=== PATIENT | male | born 1995 | race Caucasian/White ===

== ENCOUNTER 2017-01-05 04:46 | Observation (INO) | payer OTHER ==
[2017-01-05] VITALS (9 sets, daily range): BP systolic 120–155; BP diastolic 57–97; PULSE 74–96; RESP 16–24; TEMP 98.4–98.8; O2SAT 97–100
[2017-01-05] MEDS ORDERED: MORPHINE SULFATE 8 MG/ML INJ ONE (04:56)
[2017-01-05] MEDS ORDERED: DIPHTH/TETANUS/ACEL PERTUSSIS (BOOSTER) 0.5 ML VIAL/PFS IM ONE (05:12)
[2017-01-05 05:15] LABS: AUTOMATED NEUTROPHIL # 5.6 TH/MM3 (1.8-7.7); BASOPHIL # 0.1 TH/MM3 (0-0.2); BASOPHIL % 0.9 % (0.0-2.0); EOSINOPHIL # 0.3 TH/MM3 (0-0.4); HEMATOCRIT 54.4 % (39.0-51.0); HEMOGLOBIN 19.7 GM/DL (13.0-17.0); LYMPH % 36.9 % (9.0-44.0); MEAN CELL VOLUME 88.3 FL (80.0-100.0); MEAN CORPUSCULAR HEMOGLOBIN 31.9 PG (27.0-34.0); MEAN PLATELET VOLUME 7.7 FL (7.0-11.0); MONO % 7.5 % (0.0-8.0); MONOCYTE # 0.8 TH/MM3 (0-0.9); NEUT % 51.7 % (16.0-70.0); PLATELET COUNT 363 TH/MM3 (150-450); RED BLOOD COUNT 6.16 MIL/MM3 (4.50-5.90); RED CELL DISTRIBUTION WIDTH 12.5 % (11.6-17.2); WHITE BLOOD COUNT 10.8 TH/MM3 (4.0-11.0)
[2017-01-05] MEDS ORDERED: SODIUM CHLOR 0.9% 1000 ML INJ 1,000 ML IV ONE (05:15)
[2017-01-05] MEDS ORDERED: MORPHINE SULFATE 4 MG/ML INJ IV PUSH ONE (05:15)
[2017-01-05] MEDS ORDERED: ONDANSETRON HCL 4 MG/2 ML VIAL IV PUSH ONE (05:15)
[2017-01-05] MEDS ORDERED: IOHEXOL 350 MG/ML 10 ML VIAL (for RAD DIAG) IVCONTRAST ONE (05:16)
[2017-01-05 05:21] LABS: MEAN CORPUSCULAR HGB CONC 36.2 % (32.0-36.0)
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
[2017-01-05] MEDS ORDERED: LORazepam 2 MG/ML VIAL ONE (05:23)
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
[2017-01-05 05:39] LABS: INTERNATIONAL NORMALIZED RATIO 1.1 RATIO; PROTHROMBIN TIME - PATIENT 11.9 SEC (9.8-11.6)
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
[2017-01-05] MEDS ORDERED: NICOTINE 21 MG/24 HR PATCH T-DERMAL ONE (06:00)
[2017-01-05] MEDS ORDERED: MORPHINE SULFATE 8 MG/ML INJ IV PUSH ONE (06:00)
[2017-01-05] MEDS ORDERED: LORazepam 2 MG/ML VIAL IV PUSH ONE (06:30)
[2017-01-05] MEDS ORDERED: HALOPERIDOL LACTATE 5 MG/ML AMP IM ONE (06:30)
[2017-01-05 06:43] LABS: BASOPHILS 1 % (0-2); LYMPHOCYTES 27 % (9-44); MONOCYTES 11 % (0-8); NEUTROPHIL # MANUAL DIFF 6.3 TH/MM3 (1.8-7.7); POLYS (SEG NEUTROPHILS) 58 % (16-70)
[2017-01-05 07:00] LABS: BILIRUBIN, URINE NEG (NEG); BLOOD, URINE NEG (NEG); GLUCOSE,URINE NEG (NEG); KETONE, URINE NEG (NEG); NITRITE,URINE NEG (NEG); URINE COLOR COLORLESS (YELLW/STRAW); URINE LEUKOCYTE ESTERASE NEG (NEG)
[2017-01-05] MEDS ORDERED: ACETAMINOPHEN/HYDROcodone 325 MG/5 MG TAB PO PRN (07:30)
[2017-01-05] MEDS ORDERED: ENALAPRILAT 1.25 MG/ML VIAL IV PUSH PRN (07:30)
[2017-01-05] MEDS ORDERED: SODIUM CHLORIDE 0.9% FLUSH 10 ML FLUSH IV FLUSH PRN (07:30)
[2017-01-05] MEDS ORDERED: MAGNESIUM HYDROXIDE SUSP 30 ML CUP PO PRN (07:30)
[2017-01-05] MEDS ORDERED: MORPHINE SULFATE 2 MG/ML INJ IV PUSH PRN (07:30)
[2017-01-05] MEDS ORDERED: ONDANSETRON HCL 4 MG/2 ML VIAL IV PUSH PRN (07:30)
[2017-01-05] MEDS: DOCUSATE SODIUM 100 MG CAP PO SCH ×2 (09:00→20:49)
[2017-01-05] MEDS: SODIUM CHLOR 0.9% 1000 ML INJ 1,000 ML IV SCH ×2 (09:44→18:37)
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
[2017-01-05] MEDS: ceFAZolin 2 GM PREMIX 50 ML IV SCH ×2 (13:32→20:49)
[2017-01-06] MEDS: SODIUM CHLOR 0.9% 1000 ML INJ 1,000 ML IV SCH ×2 (03:25→13:25)
[2017-01-06 04:14] LABS: AUTOMATED NEUTROPHIL # 6.4 TH/MM3 (1.8-7.7); BASOPHIL % 0.5 % (0.0-2.0); EOSINOPHIL # 0.3 TH/MM3 (0-0.4); EOSINOPHIL % 3.1 % (0.0-4.0); HEMATOCRIT 45.7 % (39.0-51.0); HEMOGLOBIN 16.4 GM/DL (13.0-17.0); LYMPH % 12.8 % (9.0-44.0); LYMPHOCYTE # 1.1 TH/MM3 (1.0-4.8); MEAN CELL VOLUME 88.9 FL (80.0-100.0); MEAN CORPUSCULAR HEMOGLOBIN 31.8 PG (27.0-34.0); MEAN CORPUSCULAR HGB CONC 35.8 % (32.0-36.0); MEAN PLATELET VOLUME 8.2 FL (7.0-11.0); MONO % 10.9 % (0.0-8.0); NEUT % 72.7 % (16.0-70.0); PLATELET COUNT 218 TH/MM3 (150-450); RED BLOOD COUNT 5.14 MIL/MM3 (4.50-5.90); RED CELL DISTRIBUTION WIDTH 12.4 % (11.6-17.2); WHITE BLOOD COUNT 8.8 TH/MM3 (4.0-11.0)
[2017-01-06 04:25] LABS: ALBUMIN 3.4 GM/DL (3.4-5.0); AST (GOT) 25 U/L (15-37); BICARBONATE 28.9 MEQ/L (21.0-32.0); BLOOD UREA NITROGEN 7 MG/DL (7-18); CALCIUM 8.6 MG/DL (8.5-10.1); CHLORIDE 106 MEQ/L (98-107); CREATININE 1.01 MG/DL (0.60-1.30); GLOMERULAR FILTRATION RATE 92 ML/MIN (>89); GLUCOSE,RANDOM 118 MG/DL (74-106); SODIUM (NA) 140 MEQ/L (136-145)
[2017-01-06 04:30] LABS: ALKALINE PHOSPHATASE 73 U/L (45-117); ALT (GPT) 55 U/L (12-78); TOTAL BILIRUBIN ADULT 1.2 MG/DL (0.2-1.0); TOTAL PROTEIN 6.3 GM/DL (6.4-8.2)
[2017-01-06] MEDS: ceFAZolin 2 GM PREMIX 50 ML IV SCH ×2 (04:31→13:00)
[2017-01-06 07:11] VITALS: BP 133/76; PULSE 80; RESP 20; TEMP 98.3; O2SAT 95
[2017-01-06] MEDS: DOCUSATE SODIUM 100 MG CAP PO SCH (08:59)
[2017-01-06 11:33] VITALS: BP 159/79; PULSE 86; RESP 21; TEMP 98; O2SAT 97
[2017-01-06] MEDS ORDERED: MAGN400S PO (11:48)
[2017-01-06] MEDS ORDERED: DOCU1CAP39 PO (11:48)
[2017-01-06] MEDS ORDERED: HYDR-3516 PO (11:48)
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
== END 2017-01-06 13:42 | disposition home or self-care (01) ==
LOC: NEPE 04:46 → NEDA 05:47 → NEPHCDU 08:17
PROVIDERS: ADMIT Surgery; ATTEND Surgery
DX: S06.0X9A Concussion with loss of consciousness of unspecified duration, initial encounter (principal); S40.212A Abrasion of left shoulder, initial encounter; R55 Syncope and collapse; F17.200 Nicotine dependence, unspecified, uncomplicated; V29.9XXA Motorcycle rider (driver) (passenger) injured in unspecified traffic accident, initial encounter; Y92.410 Unspecified street and highway as the place of occurrence of the external cause
CPT/HCPCS: 70450; 71010; 71260; 72125; 72170; 74177; 80053; 80307; 81001; 82435; 82565; 82947; 84132; 84295; 84520; 85007; 85025; 85027; 85610; 85730; 86850; 86900; 86901; 90471; 90715; 94150; 96361; 96365; 96366; 96372; 96374; 96375; 97161; 99291; G0378; G8987; G8988; G8989; J0690; J1630; J2060; J7030; Q9967; G0390; J2270

== ENCOUNTER 2017-03-16 09:28 | Emergency (ER) | payer MEDICAID, OTHER ==
[~2017-03-16] VITALS: Ht 177.8 cm; Wt 98.0 kg
[~2017-03-16 09:28] MED LIST: DOCU1CAP39 PO; HYDR-3516 PO; MAGN400S PO
[2017-03-16 09:36] VITALS: BP 130/93; PULSE 108; RESP 19; TEMP 98.6; O2SAT 99
[2017-03-16 09:44] VITALS: BP 130/93; PULSE 103; RESP 19; TEMP 98.6; O2SAT 99
[2017-03-16] MEDS ORDERED: SODIUM CHLOR 0.9% 1000 ML INJ 1,000 ML IV ONE (09:45)
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
[2017-03-16 10:11] LABS: AUTOMATED NEUTROPHIL # 15.2 TH/MM3 (1.8-7.7); BASOPHIL # 0.1 TH/MM3 (0-0.2); BASOPHIL % 0.4 % (0.0-2.0); EOSINOPHIL % 0.3 % (0.0-4.0); HEMATOCRIT 52.5 % (39.0-51.0); HEMOGLOBIN 18.9 GM/DL (13.0-17.0); LYMPH % 12.1 % (9.0-44.0); LYMPHOCYTE # 2.4 TH/MM3 (1.0-4.8); MEAN CELL VOLUME 86.9 FL (80.0-100.0); MEAN CORPUSCULAR HEMOGLOBIN 31.3 PG (27.0-34.0); MEAN PLATELET VOLUME 7.9 FL (7.0-11.0); MONO % 8.8 % (0.0-8.0); MONOCYTE # 1.7 TH/MM3 (0-0.9); NEUT % 78.4 % (16.0-70.0); PLATELET COUNT 341 TH/MM3 (150-450); RED BLOOD COUNT 6.04 MIL/MM3 (4.50-5.90); RED CELL DISTRIBUTION WIDTH 12.6 % (11.6-17.2); WHITE BLOOD COUNT 19.4 TH/MM3 (4.0-11.0)
[2017-03-16 10:18] LABS: PROTHROMBIN TIME - PATIENT 10.6 SEC (9.8-11.6)
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
[2017-03-16 10:32] LABS: BICARBONATE 27.9 MEQ/L (21.0-32.0); CALCIUM 8.7 MG/DL (8.5-10.1); CREATININE 0.88 MG/DL (0.60-1.30)
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
[2017-03-16 10:54] LABS: TOXIC GRANULATION 1+ (NORMAL)
[2017-03-16] MEDS ORDERED: BACT800T5 PO (11:37)
[2017-03-16 11:38] VITALS: BP 138/83; PULSE 89; RESP 15; O2SAT 100
[2017-03-16 11:48] VITALS: BP 138/83
== END 2017-03-16 12:21 | disposition home or self-care (01) ==
LOC: NEPC 09:28
DX: S09.90XA Unspecified injury of head, initial encounter (principal); S41.102A Unspecified open wound of left upper arm, initial encounter; S02.2XXA Fracture of nasal bones, initial encounter for closed fracture; J34.2 Deviated nasal septum; F10.129 Alcohol abuse with intoxication, unspecified; D72.829 Elevated white blood cell count, unspecified; F10.120 Alcohol abuse with intoxication, uncomplicated; F90.9 Attention-deficit hyperactivity disorder, unspecified type; Y04.2XXA Assault by strike against or bumped into by another person, initial encounter
CPT/HCPCS: 12001; 70450; 70486; 71045; 72125; 72170; 73060; 73090; 80048; 80307; 85025; 85610; 85730; 96360; 99285; J7030